=== PATIENT | male | born 1955 | race Caucasian/White ===

== ENCOUNTER 2018-11-13 12:47 | Inpatient (IN) | payer OTHER ==
[2018-11-13 13:42] LABS: ADD MAN DIFF? NO
[2018-11-13 13:45] LABS: BASOPHIL # 0.1 10^3/ul (0.0-0.1); BASOPHILS % 0.5 % (0.0-2.0); EOSINOPHILS # 0.1 10^3/ul (0.0-0.5); EOSINOPHILS % 0.6 % (0.0-7.0); HEMATOCRIT 37.9 % (42.0-52.0); HEMOGLOBIN 12.6 g/dl (14.0-18.0); LYMPHOCYTES # 1.5 10^3/ul (0.8-2.9); LYMPHOCYTES % 12.4 % (15.0-51.0); MEAN CORPUSCULAR HEMOGLOBIN 29.4 pg (29.0-33.0); MEAN CORPUSCULAR HGB CONC 33.2 g/dl (32.0-37.0); MEAN CORPUSCULAR VOLUME 88.3 fl (82.0-101.0); MEAN PLATELET VOLUME 7.8 fl (7.4-10.4); MONOCYTE # 1.3 10^3/ul (0.3-0.9); NEUTROPHILS % 74.6 % (39.0-77.0); PLATELET COUNT 234 10^3/UL (140-415); RED BLOOD COUNT 4.29 10^6/ul (4.70-6.10); RED CELL DISTRIBUTION WIDTH 19.2 % (11.5-14.5)
[2018-11-13 13:55] LABS: ADD UMIC NO; UR AMORPHOUS CRYSTAL FEW /HPF (NONE SEEN); UR ASCORBIC ACID NEGATIVE (NEGATIVE); UR BACTERIA FEW /HPF (NONE SEEN); UR BILIRUBIN (Dip) 2+ mg/dL (NEGATIVE); UR BLOOD (Dip) NEGATIVE (NEGATIVE); UR CLARITY SLIGHTLY CLOUDY (CLEAR); UR COLOR AMBER (YELLOW); UR GLUCOSE (Dip) NEGATIVE (NEGATIVE); UR KETONES (Dip) NEGATIVE (NEGATIVE); UR LEUKOCYTE ESTERASE (Dip) NEGATIVE Leu/ul (NEGATIVE); UR NITRITE (Dip) NEGATIVE (NEGATIVE); UR RBC 0 /HPF (0-5); UR SPECIFIC GRAVITY (Dip) 1.017 (1.003-1.030); UR TOTAL PROTEIN (Dip) NEGATIVE (NEGATIVE); UR UROBILINOGEN (Dip) 2+ mg/dL (NEGATIVE); UR WBC 8 /HPF (0-5)
[2018-11-13 14:04] LABS: ALANINE AMINOTRANSFERASE 195 IU/L (13-69); ALKALINE PHOSPHATASE 1305 IU/L (42-121); ANION GAP 8 (5-13); ASPARTATE AMINO TRANSFERASE 362 IU/L (15-46); BILIRUBIN,INDIRECT 1.7 mg/dl (0-1.1); BILIRUBIN,TOTAL 7.3 mg/dl (0.2-1.3); BLOOD UREA NITROGEN 24 mg/dl (7-20); CALCIUM 8.8 mg/dl (8.4-10.2); CARBON DIOXIDE 26 mmol/L (21-31); CHLORIDE 103 mmol/L (97-110); CREATININE 1.43 mg/dl (0.61-1.24); Estimated GFR 50 mL/min (>60); GLUCOSE 149 mg/dl (70-220); LIPASE 372 U/L (23-300); POTASSIUM 4.6 mmol/L (3.5-5.1); SODIUM 137 mmol/L (135-144)
[2018-11-13 14:09] LABS: INR 1.16; PROTIME 14.9 Sec (11.9-14.9); PT RATIO 1.2
[2018-11-13 14:10] LABS: PARTIAL THROMBOPLASTIN TIME 35.1 Sec (23.0-35.0)
[2018-11-13] MEDS ORDERED: ONDANSETRON 4 MG INJ IV ×2 (18:00→19:30)
[2018-11-13] MEDS ORDERED: ACETAMINOPHEN 325 MG TAB PO ×2 (18:00→19:30)
[2018-11-13] MEDS ORDERED: ALBUTEROL/IPRATROPIUM (NEB) 3 ML AMP HHN (19:30)
[2018-11-13] MEDS ORDERED: NITROGLYCERIN (SL) 0.4 MG TAB SL (19:30)
[2018-11-13] MEDS ORDERED: hydrALAzine 20 MG INJ IV (19:30)
[2018-11-13] MEDS ORDERED: LORAZEPAM 2 MG INJ IV (19:30)
[2018-11-13] MEDS: SOD CHLORIDE 0.45% 1,000 ML IV (20:46)
[2018-11-13] MEDS: morphine 2 MG INJ IV (21:27)
[2018-11-13] MEDS: HEPARIN 5,000 UNIT/1 ML VIAL SC (21:28)
[2018-11-13 21:35] LABS: FREE T4 (FREE THYROXINE) 2.43 ng/dl (0.78-2.44)
[2018-11-13] MEDS: PIPER-TAZO 3.375 GM IV (PMX) 100 ML IVPB (23:08)
[2018-11-14 05:27] LABS: ADD MAN DIFF? NO
[2018-11-14 05:36] LABS: BASOPHIL # 0.1 10^3/ul (0.0-0.1); BASOPHILS % 0.5 % (0.0-2.0); EOSINOPHILS # 0.2 10^3/ul (0.0-0.5); EOSINOPHILS % 1.5 % (0.0-7.0); HEMATOCRIT 33.3 % (42.0-52.0); LYMPHOCYTES # 1.3 10^3/ul (0.8-2.9); LYMPHOCYTES % 12.9 % (15.0-51.0); MEAN CORPUSCULAR HEMOGLOBIN 29.3 pg (29.0-33.0); MEAN CORPUSCULAR VOLUME 88.8 fl (82.0-101.0); MEAN PLATELET VOLUME 8.4 fl (7.4-10.4); MONOCYTE # 1.2 10^3/ul (0.3-0.9); MONOCYTES % 11.8 % (0.0-11.0); NEUTROPHIL # 7.5 10^3/ul (1.6-7.5); NEUTROPHILS % 72.3 % (39.0-77.0); PLATELET COUNT 223 10^3/UL (140-415); RED BLOOD COUNT 3.75 10^6/ul (4.70-6.10); RED CELL DISTRIBUTION WIDTH 19.3 % (11.5-14.5)
[2018-11-14 05:36] LABS: WHITE BLOOD COUNT 10.4 10^3/ul (4.8-10.8)
[2018-11-14 05:56] LABS: ALANINE AMINOTRANSFERASE 160 IU/L (13-69); ALBUMIN 2.7 g/dl (3.3-4.9); ALKALINE PHOSPHATASE 1095 IU/L (42-121); ANION GAP 8 (5-13); ASPARTATE AMINO TRANSFERASE 272 IU/L (15-46); BILIRUBIN,INDIRECT 1.5 mg/dl (0-1.1); BLOOD UREA NITROGEN 30 mg/dl (7-20); CALCIUM 8.3 mg/dl (8.4-10.2); CARBON DIOXIDE 24 mmol/L (21-31); CHLORIDE 104 mmol/L (97-110); CREATININE 2.19 mg/dl (0.61-1.24); Estimated GFR 31 mL/min (>60); GLUCOSE 84 mg/dl (70-220); MAGNESIUM 2.4 mg/dl (1.7-2.5); PHOSPHORUS 5.7 mg/dl (2.5-4.9); POTASSIUM 4.5 mmol/L (3.5-5.1); SODIUM 136 mmol/L (135-144); TOTAL PROTEIN 7.8 g/dl (6.1-8.1)
[2018-11-14] MEDS: PIPER-TAZO 3.375 GM IV (PMX) 100 ML IVPB ×4 (06:11→23:38)
[2018-11-14] MEDS: PANTOPRAZOLE 40 MG INJ IV (06:11)
[2018-11-14 07:34] LABS: CHOL/HDL RATIO 15.9 RATIO; HDL CHOLESTEROL 12 mg/dl (30-78); LDL CHOLESTEROL,CALCULATED 147 mg/dl; TRIGLYCERIDES 161 mg/dl (0-149)
[2018-11-14 07:34] LABS: CHOLESTEROL 191 mg/dl (100-200)
[2018-11-14 08:01] LABS: HEMOGLOBIN A1C 4.7 % (0-5.9)
[2018-11-14] MEDS: SOD CHLORIDE 0.45% 1,000 ML IV (08:33)
[2018-11-14] MEDS: HYDROCODONE/APAP (5/325) TAB PO (09:22)
[2018-11-14] MEDS: HEPARIN 5,000 UNIT/1 ML VIAL SC ×2 (09:22→20:50)
[2018-11-14] MEDS: DEXTROSE 5%-0.45% NACL 1,000 ML IV (16:02)
[2018-11-14] MEDS ORDERED: EPHEDrine 25 MG/5 ML SYG IV (16:30)
[2018-11-14] MEDS ORDERED: DIPHENHYDRAMINE 50 MG INJ IV (16:30)
[2018-11-14] MEDS ORDERED: HYDROmorphONE 1 MG/5 ML IV SYRINGE IV ×3 (16:30)
[2018-11-14] MEDS ORDERED: hydrALAzine 20 MG INJ IV (16:30)
[2018-11-14] MEDS ORDERED: MIDAZOLAM 1 MG/ML 2 ML INJ IV (16:30)
[2018-11-14] MEDS ORDERED: TRIMETHOBENZAMIDE 100 MG/ML VIAL IM (16:30)
[2018-11-14] MEDS ORDERED: ONDANSETRON 4 MG INJ IV (16:30)
[2018-11-14] MEDS ORDERED: ALBUTEROL 0.083% (NEB) 2.5 MG/3 ML AMP HHN (16:30)
[2018-11-14] MEDS ORDERED: MEPERIDINE 25 MG INJ IV (16:30)
[2018-11-14] MEDS ORDERED: FENTAnyl 50 MCG/ML VIAL IV ×3 (16:30)
[2018-11-14] MEDS ORDERED: LABETALOL HCL 20MG INJ IV (16:30)
[2018-11-14] MEDS ORDERED: IPRATROPIUM (NEB) 0.5 MG/2.5 ML AMP HHN (16:30)
[2018-11-14] MEDS ORDERED: OXYCODONE/ACETAMINOPHEN (5/325) TAB PO ×2 (16:30)
[2018-11-14] MEDS ORDERED: PROPOFOL 20 ML (16:34)
[2018-11-14] MEDS ORDERED: NEOSTIGMINE 3 MG/3 ML SYRINGE (16:34)
[2018-11-14] MEDS ORDERED: CEFAZOLIN 1 GM INJ (16:34)
[2018-11-14] MEDS ORDERED: GLYCOPYRROLATE 0.4 MG INJ (16:34)
[2018-11-14] MEDS ORDERED: ROCURONIUM 50 MG INJ (16:34)
[2018-11-14] MEDS ORDERED: DEXAMETHASONE 4 MG/ML 5 ML INJ (16:35)
[2018-11-14] MEDS ORDERED: FENTAnyl 50 MCG/ML VIAL (16:35)
[2018-11-14] MEDS ORDERED: ONDANSETRON 4 MG INJ (16:35)
[2018-11-14] MEDS ORDERED: MIDAZOLAM 1 MG/ML 2 ML INJ (16:36)
[2018-11-14] MEDS ORDERED: IOHEXOL 300MG/ML 30 ML BTL (17:35)
[2018-11-14] MEDS ORDERED: DEXTROSE 50% 50 ML SYRINGE (19:05)
[2018-11-15] MEDS: PIPER-TAZO 3.375 GM IV (PMX) 100 ML IVPB ×3 (05:31→18:33)
[2018-11-15] MEDS: DEXTROSE 5%-0.45% NACL 1,000 ML IV ×3 (05:34→20:05)
[2018-11-15] MEDS: PANTOPRAZOLE 40 MG INJ IV (05:35)
[2018-11-15 05:44] LABS: WHITE BLOOD COUNT 8.1 10^3/ul (4.8-10.8)
[2018-11-15 05:45] LABS: HEMATOCRIT 35.3 % (42.0-52.0); HEMOGLOBIN 11.5 g/dl (14.0-18.0); MEAN CORPUSCULAR HEMOGLOBIN 29.3 pg (29.0-33.0); MEAN CORPUSCULAR HGB CONC 32.6 g/dl (32.0-37.0); MEAN CORPUSCULAR VOLUME 89.8 fl (82.0-101.0); MEAN PLATELET VOLUME 8.3 fl (7.4-10.4); PLATELET COUNT 195 10^3/UL (140-415); POSITIVE DIFF @See below; RED BLOOD COUNT 3.93 10^6/ul (4.70-6.10)
[2018-11-15 05:58] LABS: AMYLASE 65 U/L (11-123)
[2018-11-15 05:58] LABS: LIPASE 74 U/L (23-300)
[2018-11-15 06:11] LABS: ADD MAN DIFF? YES
[2018-11-15 06:12] LABS: ALANINE AMINOTRANSFERASE 142 IU/L (13-69); ALBUMIN 2.2 g/dl (3.3-4.9); ALBUMIN/GLOBULIN RATIO 0.44; ALKALINE PHOSPHATASE 967 IU/L (42-121); ANION GAP 10 (5-13); ASPARTATE AMINO TRANSFERASE 212 IU/L (15-46); BILIRUBIN,INDIRECT 1.3 mg/dl (0-1.1); BILIRUBIN,TOTAL 6.1 mg/dl (0.2-1.3); BLOOD UREA NITROGEN 35 mg/dl (7-20); CALCIUM 7.9 mg/dl (8.4-10.2); CARBON DIOXIDE 19 mmol/L (21-31); CHLORIDE 107 mmol/L (97-110); CREATININE 2.37 mg/dl (0.61-1.24); Estimated GFR 28 mL/min (>60); GLUCOSE 180 mg/dl (70-220); POTASSIUM 4.9 mmol/L (3.5-5.1); SODIUM 136 mmol/L (135-144); TOTAL PROTEIN 7.2 g/dl (6.1-8.1)
[2018-11-15 07:40] LABS: ANISOCYTOSIS 2+ (0-0); LYMPHOCYTES #M 0.8 10^3/ul (0.8-2.9); LYMPHOCYTES % (M) 10 % (15-51); MONOCYTE #M 0.2 10^3/ul (0.3-0.9); MONOCYTES % (M) 3 % (0-11); PLATELET ESTIMATE NORMAL; POLYCHROMASIA 1+ (0-0); REACTIVE LYMPHOCYTES #M 0.2 10^3/ul (0.0-0.0); REACTIVE LYMPHOCYTES% (M) 3 % (0-0); SEGMENTED NEUTROPHILS (M) % 84 % (39-77); SMUDGE%M 4 % (0-0); SPHEROCYTES 1+ (0-0)
[2018-11-15] MEDS: HEPARIN 5,000 UNIT/1 ML VIAL SC ×2 (08:32→20:06)
[2018-11-15] MEDS: MAGNESIUM HYDROXIDE 30ML CUP PO (16:26)
[2018-11-15] MEDS: DOCUSATE SODIUM 100 MG CAP PO (16:26)
[2018-11-15] MEDS: HYDROCODONE/APAP (5/325) TAB PO (20:12)
[2018-11-16] MEDS: PIPER-TAZO 3.375 GM IV (PMX) 100 ML IVPB ×4 (00:19→17:44)
[2018-11-16] MEDS: FAMOTIDINE 20 MG INJ IV (05:27)
[2018-11-16 05:28] LABS: ADD MAN DIFF? NO
[2018-11-16 05:35] LABS: WHITE BLOOD COUNT 14.5 10^3/ul (4.8-10.8)
[2018-11-16 05:36] LABS: BASOPHILS % 0.1 % (0.0-2.0); EOSINOPHILS % 0.1 % (0.0-7.0); HEMATOCRIT 33.7 % (42.0-52.0); HEMOGLOBIN 11.1 g/dl (14.0-18.0); LYMPHOCYTES # 0.7 10^3/ul (0.8-2.9); LYMPHOCYTES % 4.5 % (15.0-51.0); MEAN CORPUSCULAR HEMOGLOBIN 29.3 pg (29.0-33.0); MEAN CORPUSCULAR HGB CONC 32.9 g/dl (32.0-37.0); MEAN CORPUSCULAR VOLUME 88.9 fl (82.0-101.0); MONOCYTE # 0.9 10^3/ul (0.3-0.9); MONOCYTES % 6.2 % (0.0-11.0); NEUTROPHIL # 12.8 10^3/ul (1.6-7.5); PLATELET COUNT 224 10^3/UL (140-415); RED BLOOD COUNT 3.79 10^6/ul (4.70-6.10); RED CELL DISTRIBUTION WIDTH 19.3 % (11.5-14.5)
[2018-11-16 06:24] LABS: ANION GAP 10 (5-13); BLOOD UREA NITROGEN 31 mg/dl (7-20); CALCIUM 8.3 mg/dl (8.4-10.2); CARBON DIOXIDE 20 mmol/L (21-31); CHLORIDE 106 mmol/L (97-110); CREATININE 2.05 mg/dl (0.61-1.24); Estimated GFR 33 mL/min (>60); GLUCOSE 176 mg/dl (70-220); POTASSIUM 4.1 mmol/L (3.5-5.1); SODIUM 136 mmol/L (135-144)
[2018-11-16] MEDS: DEXTROSE 5%-0.45% NACL 1,000 ML IV ×3 (07:30→21:13)
[2018-11-16] MEDS: HEPARIN 5,000 UNIT/1 ML VIAL SC ×2 (08:38→21:11)
[2018-11-16] MEDS: LACTULOSE 30ML CUP PO (09:35)
[2018-11-16] MEDS: HYDROCODONE/APAP (5/325) TAB PO (15:49)
[2018-11-17] MEDS: PIPER-TAZO 3.375 GM IV (PMX) 100 ML IVPB ×5 (00:38→23:24)
[2018-11-17] MEDS ORDERED: METHYLPREDNISOLONE 125 MG INJ IM (05:30)
[2018-11-17] MEDS: FAMOTIDINE 20 MG INJ IV (05:38)
[2018-11-17 06:19] LABS: ADD MAN DIFF? NO
[2018-11-17 06:25] LABS: BASOPHILS % 0.3 % (0.0-2.0); EOSINOPHILS # 0.1 10^3/ul (0.0-0.5); EOSINOPHILS % 1.1 % (0.0-7.0); HEMATOCRIT 39.4 % (42.0-52.0); HEMOGLOBIN 12.9 g/dl (14.0-18.0); LYMPHOCYTES # 0.8 10^3/ul (0.8-2.9); MEAN CORPUSCULAR HEMOGLOBIN 29.1 pg (29.0-33.0); MEAN CORPUSCULAR HGB CONC 32.7 g/dl (32.0-37.0); MEAN CORPUSCULAR VOLUME 88.9 fl (82.0-101.0); MONOCYTE # 0.9 10^3/ul (0.3-0.9); MONOCYTES % 7.7 % (0.0-11.0); NEUTROPHIL # 9.9 10^3/ul (1.6-7.5); NEUTROPHILS % 83.1 % (39.0-77.0); PLATELET COUNT 251 10^3/UL (140-415); RED BLOOD COUNT 4.43 10^6/ul (4.70-6.10); RED CELL DISTRIBUTION WIDTH 19.9 % (11.5-14.5)
[2018-11-17 06:25] LABS: WHITE BLOOD COUNT 11.9 10^3/ul (4.8-10.8)
[2018-11-17] MEDS: LACTULOSE 30ML CUP PO ×3 (07:00→21:26)
[2018-11-17 07:19] LABS: ALBUMIN/GLOBULIN RATIO 0.48; ANION GAP 7 (5-13); CARBON DIOXIDE 22 mmol/L (21-31); CHLORIDE 106 mmol/L (97-110); Estimated GFR 50 mL/min (>60); POTASSIUM 3.9 mmol/L (3.5-5.1); SODIUM 135 mmol/L (135-144)
[2018-11-17 07:20] LABS: ALANINE AMINOTRANSFERASE 129 IU/L (13-69); ALBUMIN 2.6 g/dl (3.3-4.9); ALKALINE PHOSPHATASE 1159 IU/L (42-121); ASPARTATE AMINO TRANSFERASE 223 IU/L (15-46); BILIRUBIN,INDIRECT 1.2 mg/dl (0-1.1); BILIRUBIN,TOTAL 3.4 mg/dl (0.2-1.3); BLOOD UREA NITROGEN 25 mg/dl (7-20); CALCIUM 8.7 mg/dl (8.4-10.2); CREATININE 1.44 mg/dl (0.61-1.24); GLUCOSE 123 mg/dl (70-220)
[2018-11-17] MEDS: HEPARIN 5,000 UNIT/1 ML VIAL SC ×2 (09:11→21:29)
[2018-11-17] MEDS: DEXTROSE 5%-0.45% NACL 1,000 ML IV ×2 (09:28→12:28)
[2018-11-17] MEDS: LIDOCAINE 1% (MPF) 5 ML VIAL (15:07)
[2018-11-17 16:25] LABS: FLD MN% 71.9 %; FLD PMN% 28.1 %; FLD RBC 0 /uL; FLD WBC 554 /cmm
[2018-11-17 16:40] LABS: FLUID GLUCOSE 114 mg/dl; FLUID TOTAL PROTEIN 2.1 g/dl; FLUID TYPE PARACENTESIS FLUID
[2018-11-17 16:41] LABS: FLD TYPE PARACENTHESIS
[2018-11-17 16:41] LABS: FLD CLARITY CLEAR; FLD COLOR YELLOW
[2018-11-18] MEDS: FAMOTIDINE 20 MG INJ IV (05:15)
[2018-11-18] MEDS: PIPER-TAZO 3.375 GM IV (PMX) 100 ML IVPB ×3 (05:15→17:48)
[2018-11-18 05:24] LABS: ADD MAN DIFF? NO
[2018-11-18 05:31] LABS: WHITE BLOOD COUNT 14.6 10^3/ul (4.8-10.8)
[2018-11-18 05:31] LABS: BASOPHILS % 0.2 % (0.0-2.0); EOSINOPHILS # 0.1 10^3/ul (0.0-0.5); HEMATOCRIT 37.9 % (42.0-52.0); HEMOGLOBIN 12.6 g/dl (14.0-18.0); LYMPHOCYTES # 1.3 10^3/ul (0.8-2.9); LYMPHOCYTES % 8.6 % (15.0-51.0); MEAN CORPUSCULAR HEMOGLOBIN 29.4 pg (29.0-33.0); MEAN CORPUSCULAR HGB CONC 33.2 g/dl (32.0-37.0); MEAN CORPUSCULAR VOLUME 88.6 fl (82.0-101.0); MEAN PLATELET VOLUME 7.8 fl (7.4-10.4); MONOCYTE # 1.2 10^3/ul (0.3-0.9); NEUTROPHIL # 11.9 10^3/ul (1.6-7.5); NEUTROPHILS % 81.2 % (39.0-77.0); PLATELET COUNT 206 10^3/UL (140-415); RED BLOOD COUNT 4.28 10^6/ul (4.70-6.10); RED CELL DISTRIBUTION WIDTH 19.9 % (11.5-14.5)
[2018-11-18 07:02] LABS: ANION GAP 6 (5-13); BLOOD UREA NITROGEN 17 mg/dl (7-20); CALCIUM 8.6 mg/dl (8.4-10.2); CARBON DIOXIDE 22 mmol/L (21-31); CHLORIDE 108 mmol/L (97-110); CREATININE 0.95 mg/dl (0.61-1.24); Estimated GFR > 60 mL/min (>60); GLUCOSE 117 mg/dl (70-220); POTASSIUM 3.9 mmol/L (3.5-5.1); SODIUM 136 mmol/L (135-144)
[2018-11-18] MEDS: LACTULOSE 30ML CUP PO ×3 (08:27→20:44)
[2018-11-18] MEDS: HEPARIN 5,000 UNIT/1 ML VIAL SC ×3 (08:30→20:44)
[2018-11-18 19:49] LABS: CANCER ANTIGEN 19-9 60.8 U/ml (0.0-37.0)
[2018-11-18 20:02] LABS: ALPHA FETOPROTEIN 1.14 IU/L (0.00-7.21)
[2018-11-19] MEDS: PIPER-TAZO 3.375 GM IV (PMX) 100 ML IVPB ×5 (00:10→23:35)
[2018-11-19] MEDS: FAMOTIDINE 20 MG INJ IV (05:09)
[2018-11-19 05:39] LABS: ADD MAN DIFF? NO
[2018-11-19 05:42] LABS: BASOPHILS % 0.2 % (0.0-2.0); EOSINOPHILS # 0.1 10^3/ul (0.0-0.5); EOSINOPHILS % 0.9 % (0.0-7.0); HEMOGLOBIN 12.1 g/dl (14.0-18.0); LYMPHOCYTES # 1.1 10^3/ul (0.8-2.9); LYMPHOCYTES % 8.1 % (15.0-51.0); MEAN CORPUSCULAR HEMOGLOBIN 28.9 pg (29.0-33.0); MEAN CORPUSCULAR HGB CONC 32.7 g/dl (32.0-37.0); MEAN CORPUSCULAR VOLUME 88.5 fl (82.0-101.0); MONOCYTE # 1.2 10^3/ul (0.3-0.9); PLATELET COUNT 182 10^3/UL (140-415); RED BLOOD COUNT 4.18 10^6/ul (4.70-6.10)
[2018-11-19 05:42] LABS: WHITE BLOOD COUNT 13.6 10^3/ul (4.8-10.8)
[2018-11-19 06:13] LABS: ANION GAP 7 (5-13); BLOOD UREA NITROGEN 17 mg/dl (7-20); CALCIUM 8.5 mg/dl (8.4-10.2); CARBON DIOXIDE 22 mmol/L (21-31); CHLORIDE 107 mmol/L (97-110); Estimated GFR > 60 mL/min (>60); GLUCOSE 116 mg/dl (70-220); SODIUM 136 mmol/L (135-144)
[2018-11-19] MEDS: LACTULOSE 30ML CUP PO ×3 (09:00→21:10)
[2018-11-19] MEDS: HEPARIN 5,000 UNIT/1 ML VIAL SC ×2 (09:00→21:14)
[2018-11-19] MEDS ORDERED: MIDAZOLAM 1 MG/ML 2 ML INJ (09:47)
[2018-11-19] MEDS ORDERED: FENTAnyl 50 MCG/ML VIAL (09:47)
[2018-11-19] MEDS ORDERED: LIDOCAINE 1% (MDV) 20 ML INJ (10:17)
[2018-11-19] MEDS ORDERED: FLUMAZENIL 0.5 MG INJ (10:44)
[2018-11-19] MEDS ORDERED: GELATIN 12MM X 7 MM SPONGE (10:55)
[2018-11-19] MEDS: NACL 0.9% 3 ML SYG IV (12:59)
[2018-11-19] MEDS: HYDROCODONE/APAP (5/325) TAB PO (18:59)
[2018-11-20] MEDS: PIPER-TAZO 3.375 GM IV (PMX) 100 ML IVPB ×2 (05:31→12:45)
[2018-11-20] MEDS: FAMOTIDINE 20 MG INJ IV (05:31)
[2018-11-20 07:20] LABS: ADD MAN DIFF? NO
[2018-11-20 07:24] LABS: WHITE BLOOD COUNT 12.5 10^3/ul (4.8-10.8)
[2018-11-20 07:24] LABS: BASOPHIL # 0.1 10^3/ul (0.0-0.1); BASOPHILS % 0.5 % (0.0-2.0); EOSINOPHILS # 0.2 10^3/ul (0.0-0.5); EOSINOPHILS % 1.3 % (0.0-7.0); HEMATOCRIT 36.3 % (42.0-52.0); HEMOGLOBIN 11.8 g/dl (14.0-18.0); LYMPHOCYTES % 8.1 % (15.0-51.0); MEAN CORPUSCULAR HEMOGLOBIN 29.4 pg (29.0-33.0); MEAN CORPUSCULAR HGB CONC 32.5 g/dl (32.0-37.0); MEAN CORPUSCULAR VOLUME 90.3 fl (82.0-101.0); MONOCYTE # 1.2 10^3/ul (0.3-0.9); MONOCYTES % 9.5 % (0.0-11.0); NEUTROPHIL # 9.9 10^3/ul (1.6-7.5); NEUTROPHILS % 79.2 % (39.0-77.0); PLATELET COUNT 206 10^3/UL (140-415); RED BLOOD COUNT 4.02 10^6/ul (4.70-6.10); RED CELL DISTRIBUTION WIDTH 19.9 % (11.5-14.5)
[2018-11-20 07:54] LABS: ALANINE AMINOTRANSFERASE 110 IU/L (13-69); ALBUMIN 2.6 g/dl (3.3-4.9); ALBUMIN/GLOBULIN RATIO 0.47; ALKALINE PHOSPHATASE 1344 IU/L (42-121); ANION GAP 7 (5-13); ASPARTATE AMINO TRANSFERASE 190 IU/L (15-46); BILIRUBIN,INDIRECT 1.4 mg/dl (0-1.1); BILIRUBIN,TOTAL 3.6 mg/dl (0.2-1.3); BLOOD UREA NITROGEN 23 mg/dl (7-20); CALCIUM 8.8 mg/dl (8.4-10.2); CARBON DIOXIDE 24 mmol/L (21-31); CHLORIDE 105 mmol/L (97-110); CREATININE 0.99 mg/dl (0.61-1.24); Estimated GFR > 60 mL/min (>60); GLUCOSE 117 mg/dl (70-220); POTASSIUM 4.1 mmol/L (3.5-5.1); SODIUM 136 mmol/L (135-144); TOTAL PROTEIN 8.1 g/dl (6.1-8.1)
[2018-11-20] MEDS: LACTULOSE 30ML CUP PO ×2 (10:07→12:49)
[2018-11-20] MEDS: HEPARIN 5,000 UNIT/1 ML VIAL SC (11:12)
[2018-11-20] MEDS: HEPARIN (100 UNITS/ML) 5 ML SYG CATHETER (17:19)
== END 2018-11-20 18:00 | disposition home or self-care (01) | DRG 444 ==
LOC: E/R 12:47 → 2NE 18:00
PROC: 0FC98ZZ Extirpation of Matter from Common Bile Duct, Via Natural or Artificial Opening Endoscopic (ICD-10-PCS; principal; 2018-11-14 16:50)
PROC: 0F758DZ Dilation of Right Hepatic Duct with Intraluminal Device, Via Natural or Artificial Opening Endoscopic (ICD-10-PCS; 2018-11-14 16:50)
PROC: 0F778ZZ Dilation of Common Hepatic Duct, Via Natural or Artificial Opening Endoscopic (ICD-10-PCS; 2018-11-14 16:50)
PROC: 0FB23ZX Excision of Left Lobe Liver, Percutaneous Approach, Diagnostic (ICD-10-PCS; 2018-11-14 16:50)
PROC: 0W9G3ZZ Drainage of Peritoneal Cavity, Percutaneous Approach (ICD-10-PCS; 2018-11-14 16:50)
DX: K80.33 Calculus of bile duct with acute cholangitis with obstruction (principal); I81 Portal vein thrombosis; C18.9 Malignant neoplasm of colon, unspecified; C78.7 Secondary malignant neoplasm of liver and intrahepatic bile duct; C78.00 Secondary malignant neoplasm of unspecified lung; N17.9 Acute kidney failure, unspecified; R18.8 Other ascites; D63.0 Anemia in neoplastic disease; E11.9 Type 2 diabetes mellitus without complications; I10 Essential (primary) hypertension; K59.00 Constipation, unspecified; R16.1 Splenomegaly, not elsewhere classified; Z90.49 Acquired absence of other specified parts of digestive tract; Z87.891 Personal history of nicotine dependence; Z79.899 Other long term (current) drug therapy; Z79.01 Long term (current) use of anticoagulants; Z79.84 Long term (current) use of oral hypoglycemic drugs
CPT/HCPCS: 71045; 74176; 74330; 76700; 77012; 80048; 80053; 80061; 80076; 81001; 81003; 82105; 82150; 82378; 82945; 82962; 83036; 83690; 83735; 84100; 84157; 84439; 84443; 85025; 85610; 85730; 86301; 87070; 87102; 87116; 88104; 88305; 88307; 88313; 88341; 88342; 89051; 92610; 93005; 97162; 97166; 99285-25